=== PATIENT | female | born 1935 | race Caucasian/White ===

== ENCOUNTER → 2017-06-22 | Day surgery (SDC) | payer MEDICARE ==
[~2017-06-22] VITALS: Ht 157.5 cm; Wt 73.0 kg
[~2017-06-22] MED LIST: 0.9% Sodium Chloride 1,000 ML IV SCH; ASPI-973 PO; ASPI325T32 PO; CHOL200078 PO; MAGN250T29 PO; MULT-1018 PO; Sodium Chloride LOK Flush 10 mL Syringe IV PRN; fentaNYL-PF 50 mCg/mL 2 mL Inj IVPUSH PRN
[2017-06-22 08:05] VITALS: BP 131/75; PULSE 78; RESP 14; O2SAT 96
== END | disposition home or self-care (01) ==
LOC: END 00:24
PROVIDERS: ATTEND Internal Medicine Gastroenterology
DX: K57.32 Diverticulitis of large intestine without perforation or abscess without bleeding (principal); Z53.09 Procedure and treatment not carried out because of other contraindication